=== PATIENT | female | born 1960 | race Caucasian/White ===

== ENCOUNTER → 2020-06-22 | Outpatient (CLI) | payer OTHER | END | disposition home or self-care (01) | LOC: CFH 09:54 | PROVIDERS: ATTEND Physician Assistant | DX: R06.00 Dyspnea, unspecified (principal) | CPT/HCPCS: 71046 ==

== ENCOUNTER 2020-10-09 08:35 | Outpatient (CLI) | payer OTHER | END 2020-10-09 23:59 | disposition home or self-care (01) | LOC: CVU 08:35 | PROVIDERS: ATTEND Internal Medicine Cardiovascular Disease | DX: I35.1 Nonrheumatic aortic (valve) insufficiency (principal); R06.02 Shortness of breath | CPT/HCPCS: 93306; 93356 ==